=== PATIENT | female | born 1985 | race Two or more races ===

== ENCOUNTER 2022-08-20 09:45 | Inpatient (IN) | payer OTHER ==
[~2022-08-20] VITALS: Ht 160 cm; Wt 3.2 kg
[2022-08-20] MEDS ORDERED: PRENAT PO (10:29)
[2022-08-20] MEDS ORDERED: ADULT LOW DOSE81 M1 PO (10:30)
[2022-08-21] MEDS ORDERED: PRENATAL + DHA1 EAC1 (16:01)
[2022-08-21] MEDS ORDERED: PROAIR HFA8.5 GM (16:02)
== END 2022-08-24 16:18 | disposition home or self-care (01) | DRG 788 ==
LOC: OB/GYN 08-21 09:45 → O/R 08-21 10:44 → OB/GYN 08-21 16:04
PROVIDERS: ADMIT Obstetrics & Gynecology; ATTEND Obstetrics & Gynecology
PROC: 4A1HXCZ Monitoring of Products of Conception, Cardiac Rate, External Approach (ICD-10-PCS; 2022-08-21)
PROC: 10D00Z1 Extraction of Products of Conception, Low, Open Approach (ICD-10-PCS; principal; 2022-08-21 16:45)
DX: O34.211 Maternal care for low transverse scar from previous cesarean delivery (principal); Z3A.39 39 weeks gestation of pregnancy; Z37.0 Single live birth; Z20.822 Contact with and (suspected) exposure to COVID-19